=== PATIENT | female | born 2000 | race Hispanic/Latino ===

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

== ENCOUNTER 2021-04-26 13:52 | Emergency (ER) | payer OTHER ==
[2021-04-26] MEDS ORDERED: Penicillin V Potassium 250 MG TAB ONE (14:23)
[2021-04-26] MEDS ORDERED: Ibuprofen 600 MG TAB ONE (14:23)
== END 2021-04-26 14:33 | disposition home or self-care (01) ==
LOC: MADERS 13:52
DX: R68.84 Jaw pain (principal); J45.909 Unspecified asthma, uncomplicated
CPT/HCPCS: 99283

== ENCOUNTER 2021-09-14 15:40 | Emergency (ER) | payer OTHER | END 2021-09-14 16:40 | disposition home or self-care (01) | LOC: MADERS 15:40 | DX: U07.1 COVID-19 (principal); K02.9 Dental caries, unspecified; K05.10 Chronic gingivitis, plaque induced; J45.909 Unspecified asthma, uncomplicated | CPT/HCPCS: 99284; U0003; U0005 ==

== ENCOUNTER 2021-09-22 01:25 | Emergency (ER) | payer OTHER ==
[2021-09-22] MEDS ORDERED: diphenhydrAMINE 25 MG CAP ONE (02:08)
[2021-09-22] MEDS ORDERED: cefTRIAXone\\ROCEPHIN 500 MG VIAL ONE (02:08)
[2021-09-22] MEDS ORDERED: Azithromycin 250 MG TAB ONE (02:08)
[2021-09-22 02:18] LABS: Bilirubin Negative (Negative); Blood, Urine Trace (Negative); Glucose, Urine (Dipstick) Negative (Negative); Ketone, Urine Negative (Negative); Leukocyte Negative (Negative); Nitrite Negative (Negative); Protein, Urine (Dipstick) Negative (Neg-Trace); Urobilinogen 0.2 mg/dL (Less than 2); pH, Urine 6.5 (5.0-9.0)
[2021-09-22 02:19] LABS: Pregnancy Test - Urine (BHCG) Negative (Negative); Pregu Control Background? CLEAR/WHITE (CLR/WHITE); Pregu Control Bar Appear? YES (CONTROL BAR); Specific Gravity 1.026 (1.002-1.036)
[2021-09-22 02:20] LABS: Clarity Hazy (Clear)
[2021-09-22 02:25] LABS: Bacteria/HPF Rare-Few HPF (None Seen); RBC/HPF 0-3 HPF (0-3); Transitional Epithelial 0-3 HPF (None Seen); WBC/HPF 0-3 HPF (0-3)
[2021-09-22 17:42] LABS: Chlamydia by PCR Not Detected (NotDetected); GC by PCR Not Detected (NotDetected)
== END 2021-09-22 03:25 | disposition home or self-care (01) ==
LOC: MADERS 01:25
DX: K13.79 Other lesions of oral mucosa (principal); R30.0 Dysuria; E66.9 Obesity, unspecified; Z68.45 Body mass index [BMI] 70 or greater, adult; Z11.3 Encounter for screening for infections with a predominantly sexual mode of transmission
CPT/HCPCS: 81003; 81015; 81025; 87077; 87086; 87480; 87491; 87510; 87591; 87660; 96372; 99283; J0696

== ENCOUNTER 2021-10-10 04:39 | Emergency (ER) | payer OTHER ==
[2021-10-10 05:41] LABS: Pregnancy Test - Urine (BHCG) Negative (Negative); Pregu Control Background? CLEAR/WHITE (CLR/WHITE); Pregu Control Bar Appear? YES (CONTROL BAR); Specific Gravity 1.026 (1.002-1.036)
[2021-10-10 05:43] LABS: Clarity Slightly Cloudy (Clear); Leukocyte Negative (Negative); Nitrite Negative (Negative); Specific Gravity, Urine 1.026 (1.002-1.036); pH, Urine 5.5 (5.0-9.0)
[2021-10-10 05:44] LABS: Bacteria/HPF Rare-Few HPF (None Seen); Bilirubin Negative (Negative); Blood, Urine Trace (Negative); Glucose, Urine (Dipstick) Negative (Negative); Ketone, Urine Negative (Negative); Protein, Urine (Dipstick) Negative (Neg-Trace); RBC/HPF 0-3 HPF (0-3); Squamous Epithelial 0-3 HPF (0-3); Urobilinogen 0.2 mg/dL (Less than 2); WBC/HPF 0-3 HPF (0-3)
== END 2021-10-10 05:47 | disposition home or self-care (01) ==
LOC: MADERS 04:39
DX: R10.31 Right lower quadrant pain (principal); R10.32 Left lower quadrant pain
CPT/HCPCS: 81003; 81015; 81025; 99284

== ENCOUNTER 2021-10-23 13:10 | Outpatient (CLI) | payer OTHER ==
[2021-10-23 13:22] LABS: BHCG - Serum Negative (NEGATIVE); Pregs Control Background? CLEAR/WHITE (CLR/WHITE); Pregs Control Bar Appear? YES (CONTROL BAR)
[2021-10-24 13:54] LABS: Chlamydia by PCR Not Detected (NotDetected); GC by PCR Not Detected (NotDetected)
== END 2021-10-23 13:11 | disposition home or self-care (01) ==
LOC: MADLABBHPM 13:10 → MADLAB 13:11
PROVIDERS: ATTEND Family Medicine
DX: Z11.3 Encounter for screening for infections with a predominantly sexual mode of transmission (principal); N92.6 Irregular menstruation, unspecified; R10.30 Lower abdominal pain, unspecified; R10.2 Pelvic and perineal pain
CPT/HCPCS: 84703; 87070; 87205; 87480; 87491; 87510; 87591; 87660

== ENCOUNTER 2021-12-09 07:57 | Emergency (ER) | payer OTHER ==
[2021-12-09 08:47] LABS: Bilirubin Negative (Negative); Blood, Urine Moderate (Negative); Clarity Clear (Clear); Glucose, Urine (Dipstick) Negative (Negative); Ketone, Urine Negative (Negative); Leukocyte Negative (Negative); Nitrite Negative (Negative); Protein, Urine (Dipstick) Negative (Neg-Trace); Specific Gravity, Urine 1.025 (1.005-1.030); Urobilinogen 0.2 mg/dL (Less than 2)
[2021-12-09 08:54] LABS: Bacteria/HPF Rare-Few HPF (None Seen); Mucous/LPF 2+ LPF (<2+)
== END 2021-12-09 09:31 | disposition home or self-care (01) ==
LOC: MADERS 07:57
DX: B34.9 Viral infection, unspecified (principal); Z20.822 Contact with and (suspected) exposure to COVID-19
CPT/HCPCS: 71045; 81003; 81015; 87081; 87430; 87804; U0003; U0005

== ENCOUNTER 2022-03-20 16:40 | Emergency (ER) | payer OTHER ==
[2022-03-20] MEDS ORDERED: Sodium Chloride 0.9% 1,000 ML ONE (17:31)
[2022-03-20] MEDS ORDERED: Metoclopramide HCl 10 MG/2 ML VIAL ONE (17:31)
[2022-03-20] MEDS ORDERED: Ketorolac Tromethamine 30 MG/ML VIAL ONE (17:31)
[2022-03-20] MEDS ORDERED: diphenhydrAMINE 50 MG/ML VIAL ONE (17:31)
[2022-03-20 17:53] LABS: BHCG - Serum Negative (NEGATIVE); Pregs Control Background? CLEAR/WHITE (CLR/WHITE); Pregs Control Bar Appear? YES (CONTROL BAR)
== END 2022-03-20 18:30 | disposition home or self-care (01) ==
LOC: MADERS 16:40
DX: R51.9 Headache, unspecified (principal)
CPT/HCPCS: 84703; 96374; 96375; J1200; J1885; J2765; J7050

== ENCOUNTER 2022-12-14 07:26 | Emergency (ER) | payer OTHER ==
[2022-12-14 07:58] LABS: Pregnancy Test - Urine (BHCG) Negative (Negative)
[2022-12-14 07:59] LABS: Pregu Control Background? CLEAR/WHITE (CLR/WHITE); Pregu Control Bar Appear? YES (CONTROL BAR); Specific Gravity 1.028 (1.002-1.036)
[2022-12-14 08:02] LABS: Bilirubin Negative (Negative); Blood, Urine Trace (Negative); Clarity Clear (Clear); Glucose, Urine (Dipstick) Negative (Negative); Ketone, Urine 15 mg/dL (Negative); Leukocyte Small (Negative); Nitrite Negative (Negative); Protein, Urine (Dipstick) Negative (Neg-Trace); RBC/HPF 0-3 HPF (0-3); Specific Gravity, Urine 1.028 (1.002-1.036); Urobilinogen 0.2 mg/dL (Less than 2)
[2022-12-14 08:03] LABS: Bacteria/HPF 1+ HPF (None Seen); CAUTI Indications for Culture Pelvic or flank pain
[2022-12-14 08:04] LABS: Urine Culture Reflex Yes Yes
[2022-12-14] MEDS ORDERED: Dicyclomine 20 MG/2 ML VIAL ONE (08:25)
[2022-12-14] MEDS ORDERED: cefTRIAXone (ROCEPHIN) 2 GM VIAL ONE (08:26)
[2022-12-14] MEDS ORDERED: Ketorolac Tromethamine 30 MG/ML VIAL ONE (08:26)
[2022-12-14] MEDS ORDERED: Sodium Chloride 0.9% 100 ML ONE (08:26)
[2022-12-14] MEDS ORDERED: Sodium Chloride 0.9% 1,000 ML ONE (08:26)
[2022-12-14] MEDS ORDERED: Simethicone Chewable 80 MG TAB ONE (08:26)
[2022-12-14 08:42] LABS: #Eosinphils 0.2 thou/uL (0.0-0.7); #Lymphocytes 2.2 thou/uL (1.20-3.40); #Monocytes 0.7 thou/uL (0.11-0.59); #Neutrophils 5.4 thou/uL (1.40-6.50); %Basophils 0.4 % (0.0-1.0); %Eosinophils 2.2 % (0.0-10.0); %Lymphocytes 25.7 % (21.0-51.0); %Monocytes 7.9 % (0.0-10.0); %Neutrophils 63.7 % (42.0-75.0); Hematocrit 34.3 % (36.0-47.0); Hemoglobin 10.4 g/dL (12.0-16.0); Mean Corpuscular HGB CONC 30.2 g/dL (32.0-36.0); Mean Corpuscular Hemoglobin 22.3 pg (27.0-31.0); Mean Corpuscular Volume 73.9 fl (78.0-98.0); Mean Platelet Volume 7.8 fL (7.4-10.4); Platelet Count 314 10x3/uL (130-400); RBC Distribution Width 16.8 % (11.5-14.5); Red Blood Cell (RBC) Count 4.64 mill/uL (4.20-5.40); White Blood Cell (WBC) Count 8.4 10x3/uL (4.8-10.8)
[2022-12-14 08:45] LABS: Anisocytosis SLIGHT = 6-15 cells (100X) (0-5/hpf); Platelet Adequacy Comment Appears Adequate
[2022-12-14 08:47] LABS: ALT (SGPT) 12 U/L (8-55); AST (SGOT) 12 U/L (5-34); Albumin 3.9 g/dL (3.5-5.0); Alkaline Phosphatase 73 U/L (40-110); Anion Gap 12 mmol/L (10-20); BUN (Urea Nitrogen) 10 mg/dL (7.0-18.7); Bilirubin, Total 0.4 mg/dL (0.2-1.2); Calc. Creatinine Clearance 0 mL/min (70-130); Calcium 8.9 mg/dL (7.8-10.44); Carbon Dioxide 22 mmol/L (22-29); Chloride 106 mmol/L (98-107); Estimated GFR 128; Globulin 3.5 g/dL (2.4-3.5); Glucose 92 mg/dL (70-105); Lipase 9 U/L (8-78); Potassium 3.3 mmol/L (3.5-5.1); Protein, Total 7.4 g/dL (6.0-8.3); Sodium 137 mmol/L (136-145)
[2022-12-14] MEDS ORDERED: Iopamidol 370 76% 200 ML VIAL ONE (09:09)
[2022-12-14] MEDS ORDERED: Potassium Chloride 20 MEQ TAB ONE (09:48)
[2022-12-14] MEDS ORDERED: Doxycycline 100 MG CAP ONE (09:48)
[2022-12-14] MEDS ORDERED: metroNIDAZOLE 250 MG TAB ONE (09:48)
[2022-12-15 00:32] LABS: Chlamydia by PCR, EndoCx Swab DETECTED (NotDetected); GC by PCR, EndoCx Swab Not Detected (NotDetected)
== END 2022-12-14 10:14 | disposition home or self-care (01) ==
LOC: MADERS 07:26
DX: N72 Inflammatory disease of cervix uteri (principal); E87.6 Hypokalemia; D50.9 Iron deficiency anemia, unspecified; N39.0 Urinary tract infection, site not specified
CPT/HCPCS: 74177; 80053; 81001; 81025; 83605; 83690; 85025; 87040; 87086; 87480; 87491; 87510; 87591; 87660; 94760; 96365; 96372; 96375; J0696; J1885; J3490; J7050